=== PATIENT | female | born 1930 | race Caucasian/White ===

== ENCOUNTER 2017-11-19 17:53 | Emergency (ER) | payer OTHER ==
--- NOTE | 2017-11-19 20:11 | RAD REPORT ---
EXAM DESCRIPTION: RAD - Forearm Right - 11/19/2017 8:01 pm CLINICAL HISTORY: PAIN Fall COMPARISON: None FINDINGS: Diffuse osteopenia is seen. Moderate degenerative changes involve the first carpometacarpa l joint. Focal soft tissue defect is seen mid forearm. No fracture appreciated. No radiopaque foreign body seen.
[2017-11-19] MEDS ORDERED: TETANUS & DIPHTHERIA TOX,ADULT 0.5 ML VIAL ONE (20:18)
--- NOTE | 2017-11-19 20:20 | EDPHYS ---
Physician Documentation [facility] Name: Claritza Vang Age: 86 yrs Sex: Female : 1930 Arrival Date: 11/19/2017 Time: 17:55 Bed 18 Private MD: ED Physician Guanako Szymanski HPI: 11/19 19:33 This 86 yrs old Female presents to ER via EMS with complaints of Fall Injury. gs 19:33 Details of fall: The patient fell from seated position, out of a chair, toilet. Onset: gs The symptoms/episode began/occurred acutely. Associated injuries: The patient sustained palmar aspect of right forearm, abrasion. Severity of symptoms: At their worst the symptoms were mild, in the emergency department the symptoms are unchanged. The patient has experienced similar episodes in the past, a few times. slipped off toilet no loc no syncope. Historical: - Allergies: 18:05 Morphine; jl7 - Home Meds: 18:05 Lipitor Oral [Active]; Namenda oral oral [Active]; jl7 - PMHx: 18:05 Hyperlipidemia; Dementia; jl7 - Immunization history:: Adult Immunizations up to date. - Social history:: Smoking status: Patient/guardian denies using tobacco. - Ebola Screening: : No symptoms or risks identified at this time. ROS: 20:11 All other systems are negative. gs Exam: 20:11 Head/Face: Normocephalic, atraumatic. Eyes: Pupils equal round and reactive to light, gs extra-ocular motions intact. Lids and lashes normal. Conjunctiva and sclera are non-icteric and not injected. Cornea within normal limits. Periorbital areas with no swelling, redness, or edema. ENT: Nares patent. No nasal discharge, no septal abnormalities noted. Tympanic membranes are normal and external auditory canals are clear. Oropharynx with no redness, swelling, or masses, exudates, or evidence of obstruction, uvula midline. Mucous membranes moist. Neck: Trachea midline, no thyromegaly or masses palpated, and no cervical lymphadenopathy. Supple, full range of motion without nuchal rigidity, or vertebral point tenderness. No Meningismus. Chest/axilla: Normal chest wall appearance and motion. Nontender with no deformity. No lesions are appreciated. Cardiovascular: Regular rate and rhythm with a normal S1 and S2. No gallops, murmurs, or rubs. Normal PMI, no JVD. No pulse deficits. Respiratory: Lungs have equal breath sounds bilaterally, clear to auscultation and percussion. No rales, rhonchi or wheezes noted. No increased work of breathing, no retractions or nasal flaring. Abdomen/GI: Soft, non-tender, with normal bowel sounds. No distension or tympany. No guarding or rebound. No evidence of tenderness throughout. Back: No spinal tenderness. No costovertebral tenderness. Full range of motion. Skin: Warm, dry with normal turgor. Normal color with no rashes, no lesions, and no evidence of cellulitis. Neuro: Awake and alert, GCS 15, oriented to person, place, time, and situation. Cranial nerves II-XII grossly intact. Motor strength 5/5 in all extremities. Sensory grossly intact. Cerebellar exam normal. Normal gait. 20:11 Constitutional: The patient appears alert, awake. 20:11 Musculoskeletal/extremity: Extremities: noted in the palmar aspect of right forearm: abrasion, skin tear 3x5cm, Pulses: are normal with no appreciated deficits, Joints: All joints appear normal with full range of motion. 20:11 Skin: injury, avulsion(s), a small of the palmar aspect of right forearm. Vital Signs: 18:05 BP 134 / 69; Pulse 87; Resp 16 S; Pulse Ox 95% on R/A; Pain 0/10; jl7 19:05 BP 132 / 72; Pulse 90; Resp 13 S; Pulse Ox 96% on R/A; Pain 0/10; jd3 19:52 BP 109 / 71; Pulse 89; Resp 15 S; Pulse Ox 97% on R/A; Pain 0/10; jd3 MDM: 19:16 Patient medically screened. gs 20:11 Differential diagnosis: fracture, laceration, sprain. Data reviewed: vital signs, gs nurses notes. Counseling: I had a detailed discussion with the patient and/or guardian regarding: radiology results, the need for outpatient follow up. Response to treatment: the patient's symptoms have mildly improved after treatment, and as a result, I will discharge patient. 11/19 19:16 Order name: Forearm Right XRAY; Complete Time: 20:20 gs Administered Medications: 20:18 Drug: Tetanus-Diphtheria Toxoid Adult 0.5 ml {Security Site Supervisor: [employer]. Exp: jd3 01/01/2020. Lot #: [id number]. } Route: IM; Site: right deltoid; 20:36 Follow up: Response: No adverse reaction jd3 Disposition: 11/19/17 20:20 Discharged to Home. Impression: Unspecified open wound of right forearm. - Condition is Stable. - Discharge Instructions: Deep Skin Avulsion. - Medication Reconciliation Form, Thank You Letter, Antibiotic Education, Prescription Opioid Use form. - Follow up: Private Physician; When: 2 - 3 days; Reason: Re-evaluation by your physician. Signatures: Dispatcher [employer] Fuad Smith RN RN jl7 Guanako Szymanski MD MD gs Davies, Jonathon, RN RN jd3 Corrections: (The following items were deleted from the chart) 20:49 20:20 11/19/2017 20:20 Discharged to Home. Impression: Unspecified open wound of right jd3 forearm. Condition is Stable. Forms are Medication Reconciliation Form, Thank You Letter, Antibiotic Education, Prescription Opioid Use. Follow up: Private Physician; When: 2 - 3 days; Reason: Re-evaluation by your physician. nimco
--- NOTE | 2017-11-19 20:20 | ER ---
Nurse's Notes [facility] Name: Claritza Vang Age: 86 yrs Sex: Female : 1930 Arrival Date: 11/19/2017 Time: 17:55 Bed 18 Private MD: Diagnosis: Unspecified open wound of right forearm Presentation: 11/19 17:55 Presenting complaint: EMS states: Her daughter was helping her in the bathroom and the jl7 pt tried to bend over to pull up her underwear and she lost her balance, fell and hit her head on the shower. Does not take blood thinners, denies LOC, denies pain, has a skin tear to right forearm. Pt has sundowner's. Care prior to arrival: None. 17:55 Acuity: JAMA 3 [facility] 17:55 Method Of Arrival: EMS: [place] [id number] 18:12 Transition of care: patient was not received from another setting of care. Onset of jl7 symptoms was November 19, 2017. Risk Assessment: Do you want to hurt yourself or someone else? Patient reports no desire to harm self or others. Initial Sepsis Screen: Does the patient meet any 2 criteria? No. Patient's initial sepsis screen is negative. Does the patient have a suspected source of infection? No. Patient's initial sepsis screen is negative. Triage Assessment: 18:05 General: Appears in no apparent distress. uncomfortable, Behavior is calm, cooperative, jl7 appropriate for age. Pain: Denies pain. EENT: No signs and/or symptoms were reported regarding the EENT system. Neuro: Level of Consciousness is awake, alert, obeys commands, Oriented to none. Cardiovascular: Patient's skin is warm and dry. Respiratory: Airway is patent Respiratory effort is even, unlabored, Respiratory pattern is regular, symmetrical. Respiratory:. GI: Parent/caregiver reports the patient having anorexia. : No signs and/or symptoms were reported regarding the genitourinary system. Derm: Skin is pink, warm \T\ dry. Musculoskeletal: No deficits noted. No signs and/or symptoms reported regarding the musculoskeletal system. Historical: - Allergies: 18:05 Morphine; jl7 - Home Meds: 18:05 Lipitor Oral [Active]; Namenda oral oral [Active]; jl7 - PMHx: 18:05 Hyperlipidemia; Dementia; jl7 - Immunization history:: Adult Immunizations up to date. - Social history:: Smoking status: Patient/guardian denies using tobacco. - Ebola Screening: : No symptoms or risks identified at this time. Screenin:12 Abuse screen: Denies threats or abuse. Denies injuries from another. Tuberculosis jl7 screening: No symptoms or risk factors identified. 18:57 Nutritional screening: No deficits noted. Fall Risk Fall in past 12 months (25 points). jd3 Ambulatory Aid- None/Bed Rest/Nurse Assist (0 pts). Gait- Normal/Bed Rest/Wheelchair (0 pts) Mental Status- Oriented to own ability (0 pts). Total Pollard Fall Scale indicates Low Risk Score (25-44 pts). Fall prevention measures have been instituted. Side Rails Up X 2 Placed close to Nursing Station Frequent Obs/Assesments occuring Family Present and informed to notify staff if they need to leave bedside. Assessment: 18:11 General: See triage assessment. jl7 18:16 Reassessment: Pt's daughter Bryanna reports pt's baseline is A\T\O to none and she walks jl7 with a walker at home. 18:58 Reassessment: Patient appears in no apparent distress at this time. No changes from jd3 previously documented assessment. Patient and/or family updated on plan of care and expected duration. Pain level reassessed. 19:51 Reassessment: Patient appears in no apparent distress at this time. No changes from jd3 previously documented assessment. Patient and/or family updated on plan of care and expected duration. Pain level reassessed. X-ray at bedside. Vital Signs: 18:05 BP 134 / 69; Pulse 87; Resp 16 S; Pulse Ox 95% on R/A; Pain 0/10; jl7 19:05 BP 132 / 72; Pulse 90; Resp 13 S; Pulse Ox 96% on R/A; Pain 0/10; jd3 19:52 BP 109 / 71; Pulse 89; Resp 15 S; Pulse Ox 97% on R/A; Pain 0/10; jd3 ED Course: 17:55 Patient arrived in ED. jl7 17:58 Triage completed. jl7 18:05 Arm band placed on right wrist. jl7 18:08 Patient has correct armband on for positive identification. Placed in gown. Bed in low mh5 position. Call light in reach. Side rails up X2. Warm blanket given. Pillow given. radiation monitor on. Pulse ox on. NIBP on. 18:16 Fuad Bangura, RN is Primary Nurse. adrianna 18:59 Primary Nurse role handed off by Fuad Bangura, JOHANNA roman 18:59 Tom Ochoa, RN is Primary Nurse. jd3 19:07 Guanako Szymanski MD is Attending Physician. 20:00 X-ray completed. Portable x-ray completed in exam room. Patient tolerated procedure bb2 well. 20:01 Forearm Right XRAY In Process Unspecified. EDMS 20:37 No provider procedures requiring assistance completed. Patient did not have IV access jd3 during this emergency room visit. Administered Medications: 20:18 Drug: Tetanus-Diphtheria Toxoid Adult 0.5 ml {Spa Director/Finance: [employer]. Exp: jd3 01/01/2020. Lot #: [id number]. } Route: IM; Site: right deltoid; 20:36 Follow up: Response: No adverse reaction jd3 Outcome: 20:20 Discharge ordered by . 20:37 Discharged to home via wheelchair, with family. jd3 20:37 Condition: stable 20:37 Discharge instructions given to family, Instructed on discharge instructions, follow up and referral plans. Demonstrated understanding of instructions, follow-up care. 20:49 Patient left the ED. jd3 Signatures: Dispatcher [employer] EDSD Migue Kaela 5 Fuad Bangura RN RN jlGuanako Koo MD MD gs Davies, Jonathon, RN RN jKaryn Jasmine bb
[2017-11-19 21:31] VITALS: BP 109/71; O2SAT 97
== END 2017-11-19 20:49 | disposition home or self-care (01) ==
LOC: ER 17:53
DX: S51.801A Unspecified open wound of right forearm, initial encounter (principal); W18.11XA Fall from or off toilet without subsequent striking against object, initial encounter; Y93.89 Activity, other specified; Y92.89 Other specified places as the place of occurrence of the external cause; Z88.5 Allergy status to narcotic agent; Z23 Encounter for immunization; E78.5 Hyperlipidemia, unspecified
CPT/HCPCS: 90714; 99284